=== PATIENT | female | born 1985 | race American Indian/Alaskan Native ===

== ENCOUNTER → 2019-04-20 | Emergency (ER) | payer MEDICAID ==
[~2019-04-20] VITALS: Ht 157.5 cm; Wt 53.5 kg
[~2019-04-20] MED LIST: LACTULOSE 20Gm/30ML SOLN PO ONE; MAGNESIUM CITRATE SOLUTION 300 ML BTL PO ONE; MORPHINE SULFATE 4 MG/ML SYR/VIAL IV ONE; ONDANSETRON HCL 4 MG/2 ML VIAL IV ONE
[2019-04-20 22:13] LABS: Basophils % (auto) 0.6 % (0.0-2.0); Eosinophils # (auto) 0.2 uL; Lymphocytes # (auto) 1.9 uL
[2019-04-20 22:14] LABS: Basophils # (auto) 0 uL; Eosinophils % (auto) 2.8 % (0.0-7.0); Hematocrit 29.2 % (36.0-46.0); Lymphocytes % (auto) 22.3 % (10.0-50.0); Mean Corpuscular Hemoglobin 19.7 pg (28.0-32.0); Mean Corpuscular Hgb Conc. 30.8 g/dL (32.0-36.0); Monocytes # (auto) 0.7 uL; Monocytes % (auto) 8.6 % (0.0-12.0); Neutrophils # (auto) 5.6 uL; Neutrophils % (auto) 65.7 % (37.0-80.0); Platelet Count (auto) 295 10^3/uL (140-450); Red Blood Cells 4.57 10^6/uL (4.0-5.20); Red Cell Distribution Width 18.5 % (11.8-14.3); White Blood Cell 8.5 10^3/uL (4.4-10.8)
[2019-04-20 22:17] LABS: INR 0.97 (0.9-1.15); Partial Thromboplastin Time 27.4 sec (23.64-32.05)
[2019-04-20 22:19] LABS: Urine Bacteria FEW /hpf (None Seen); Urine Blood Negative /uL (Negative); Urine Mucus FEW (None Seen); Urine Specific Gravity 1.021 (1.001-1.035); Urine WBC 62 /hpf (0 - 5); Urine WBC Clumps PRESENT /hpf (None Seen)
[2019-04-20 22:21] LABS: Albumin 3.3 g/dL (3.4-5.0); BUN/Creatinine Ratio 16.9; Calcium 8.2 mg/dL (8.5-10.1); Magnesium 2.1 mg/dL (1.6-2.6); Potassium 3.7 mmol/L (3.5-5.1)
[2019-04-20 22:24] LABS: Bilirubin, Total 0.2 mg/dL (0.2-1.0); Total Protein 8.3 g/dL (6.4-8.2)
[2019-04-21 06:27] VITALS: BP 109/73
== END | disposition home or self-care (01) ==
LOC: ER 21:39
DX: K59.00 Constipation, unspecified (principal); N39.0 Urinary tract infection, site not specified; D50.9 Iron deficiency anemia, unspecified
CPT/HCPCS: 36415; 74176; 80053; 81001; 81025; 82150; 83690; 83735; 85025; 85610; 85730; 96374; 96375

== ENCOUNTER 2023-08-12 13:19 | Emergency (ER) | payer SELFPAY ==
[~2023-08-12] VITALS: Ht 154.9 cm; Wt 63.6 kg
[2023-08-12 14:52] LABS: Basophils # (auto) 0 10 ^3/uL (0-0.2); Basophils % (auto) 0.9 % (0.0-2.0); Eosinophils # (auto) 0.6 10 ^3/uL (0-0.8); Eosinophils % (auto) 12.2 % (0.0-7.0); Hemoglobin 7.3 g/dL (12.2-16.2); Lymphocytes # (auto) 1.4 10 ^3/uL (0.4-5.4); Lymphocytes % (auto) 28.8 % (10.0-50.0); Mean Corpuscular Hemoglobin 16.9 pg (28.0-32.0); Mean Corpuscular Hgb Conc. 29.3 g/dL (32.0-36.0); Mean Corpuscular Volume 57.7 fL (80.0-100.0); Monocytes # (auto) 0.3 10 ^3/uL (0-1.3); Monocytes % (auto) 7.1 % (0.0-12.0); Neutrophils # (auto) 2.5 10 ^3/uL (1.6-8.6); Red Blood Cells 4.33 10^6/uL (4.0-5.20); White Blood Cell 4.8 10^3/uL (4.4-10.8)
[2023-08-12 15:13] LABS: Alanine Aminotransferase 16 U/L (7-40); Alkaline Phosphatase 119 U/L (46-116); Anion Gap 7 (5-15); Aspartate Aminotransferase 12 U/L (13-40); BUN/Creatinine Ratio 18.1 (10.0-20.0); Blood Urea Nitrogen 13 mg/dL (9-23); Calcium 9.1 mg/dL (8.7-10.4); Carbon Dioxide 24 mmol/L (20-30); Chloride 108 mmol/L (98-107); Glucose 119 mg/dL (74-106); Potassium 3.9 mmol/L (3.5-5.1); Sodium 139 mmol/L (136-145)
[2023-08-12 15:14] LABS: Albumin 4.3 g/dL (3.2-4.8); Bilirubin, Total 0.3 mg/dL (0.2-1.0); Total Protein 7.6 g/dL (5.7-8.2)
[2023-08-12 15:34] LABS: Hypochromia Moderate; Platelet Estimate Adequate
[2023-08-12 15:35] LABS: Ovalocytes FEW; Stomatocytes Few
[2023-08-12 16:16] LABS: Urine Bacteria None Seen /hpf (None Seen)
[2023-08-12 16:20] LABS: Urine Blood Negative /uL (Negative); Urine Clarity Clear (Clear); Urine Color Yellow (Yellow); Urine Mucus FEW (None Seen); Urine Protein, UAD TRACE (Negative); Urine Urobilinogen Normal (Negative); Urine WBC 1 /hpf (0 - 5)
[2023-08-12] MEDS: KETOROLAC TROMETH 60MG/2ML VIAL IM ONE (17:11)
[2023-08-12 17:18] VITALS: BP 110/84; PULSE 76; RESP 16; TEMP 98.1; O2SAT 100
[2023-08-12] MEDS ORDERED: IBUP-1456 PO (17:58)
[2023-08-12] MEDS ORDERED: FER325T PO (17:58)
== END 2023-08-12 18:09 | disposition home or self-care (01) ==
LOC: ER 13:19
DX: N84.0 Polyp of corpus uteri (principal); D25.9 Leiomyoma of uterus, unspecified; D64.9 Anemia, unspecified; Z88.1 Allergy status to other antibiotic agents; Z79.1 Long term (current) use of non-steroidal anti-inflammatories (NSAID)
CPT/HCPCS: 36415; 76830; 76856; 80053; 81001; 81025; 85025; 96372; 99285; J1885